=== PATIENT | female | born 1990 | race African-American/Black ===

== ENCOUNTER 2016-08-23 02:14 | Emergency (ER) | payer SELFPAY ==
[2016-08-23 02:24] VITALS: BP 113/84; BMI 23.3
--- NOTE | 2016-08-23 03:25 | DR.GENAD ---
HPI - PCP Primary Care Physician: NFD - Complaint/Symptoms Chief Complaint Doctors Comments: Patient had anxiety due to loss of first born. Baby was premature due to complication of spina bifida. Patient states that she has frequent thoughts about the lost of her first baby and gets anxiety at thime. She also viced concerns of the present relationship she is in. The father of her second child; who does not contributes to the support nor does he helps around the house. She does not have a relationship with her biological mother and has not had contact with her since leaving home at an early age. Chief Complaint:: CHEST PAIN, HEADACHE Self Treatment fo Chief Complaint: PT TOOK XANAX AT AROUND 2000 - Source History Provided: Patient - Mode of Arrival Mode of Arrival: Ambulatory - Timing Onset of Chief Complaint: 08/23/16 PMH - PMH Past Medical History: Yes Past Medical History: Anxiety Past Medical History Comment: PT TAKES XANAX FOT ANXIETY Past Surgical History: No Surgical History: - Family History History of Family Medical Conditions: No - Social History Does patient currently use any type of tobacco product: No Have you used tobacco products in the last 12 months: No Type of Tobacco Use: None Does any household member use tobacco: No Alcohol Use: None Do you use any recreational Drugs:: No Lives With: Alone Lives Where: Home - infectious screening In the last 2 months have you had wt loss of >10#?: NO Have you had fever, night sweats or hemotysis?: No Have you traveled outside the country in the last 6 months?: No Isolation: Standard ROS - Review of Systems Constitutional: No Symptoms Reported Eyes: No Symptoms Reported ENTM: No Symptoms Reported Respiratoy: No Symptoms Reported Cardiovascular: No Symptoms Reported Gastrointestinal/Abdominal: No Symptoms Reported Genitourinary: No Symptoms Reported Neurological: No Symptoms Reported Musculoskeletal: No Symptoms Reported Integumentary: No Symptoms Reported Hematologic/Lymphatic: No Symptoms Reported Endocrine: No Symptoms Reported Psychiatric: Anxiety. negative: Hallucinations, Suicidal All Other Systems: Reviewed and Negative PE - Vital Signs Vitals: Temperature 98.4 F Pulse Rate 90 Respiratory Rate 20 Blood Pressure 113/84 O2 Sat by Pulse Oximetry 99 - General Limitations: No Limitations General Appearance: Alert, In No Apparent Distress - Head Head Exam: Normal Inspection, Atraumatic - Eyes Eye exam: Normal Appearance, PERRL, EOMI - ENT ENT Exam: Normal Exam External Ear Exam: Normal External Inspection TM/Canal Exam: Bilateral Normal Nose Exam: Normal Nose Exam Mouth Exam: Normal Inspection Throat Exam: Normal Inspection - Neck Neck Exam: Normal Inspection, Full ROM - Chest Chest Inspection: Normal Inspection, Symmetric Chest Wall Rise - Respiratory Respiratory Exam: Normal Lung Sounds Bilat Respiratory Exam: Bilateral Clear to Auscultation - Cardiovascular Cardiovascular Exam: Regular Rate - Abdominal Exam Abdominal Exam: Normal Inspection Abdominal Tenderness: negative: RUQ, RLQ, LUQ, LLQ, Epigastrium, Suprapubic, Diffuse, Mild, Moderate, Severe, Other - Extremities Extremities Exam: Normal Inspection, Full ROM - Back Back Exam: Normal Inspection - Neurologic Neurological Exam: Alert, Oriented X3, CN II-XII Intact - Psychiatric Psychiatric Exam: Normal Affect - Skin Skin Exam: Warm, Dry, Normal Color - Diagnosis Discharge Problem: Anxiety - Discharge Plan Condition: Stable - Follow ups/Referrals Follow ups/Referrals: NFD,None [Primary Care Provider] - 3 days - Instructions
== END 2016-08-23 03:33 | disposition home or self-care (01) ==
LOC: ER 02:14
DX: F41.8 Other specified anxiety disorders (principal)
CPT/HCPCS: 99281; 99282

== ENCOUNTER 2017-02-08 18:07 | Emergency (ER) | payer SELFPAY ==
[2017-02-08 18:12] VITALS: BMI 23.7
[2017-02-08 19:20] LABS: BILIRUBIN,URINE NEGATIVE (NEGATIVE); BLOOD/HEMOGLOBIN,URINE NEGATIVE (NEGATIVE); GLUCOSE, URINE NEGATIVE (NEGATIVE); KETONES,URINE NEGATIVE (NEGATIVE); LEUKOCYTE ESTERASE ,URINE NEGATIVE (NEGATIVE); NITRITES,URINE NEGATIVE (NEGATIVE); PROTEIN,URINE NEGATIVE (NEGATIVE); UROBILINOGEN,URINE NORMAL (NORMAL)
--- NOTE | 2017-02-08 19:22 | DR.GENAD ---
HPI - PCP Primary Care Physician: none - Complaint/Symptoms Chief Complaint Doctors Comments: Patient is complainig of lower abdominal and suprapubic pain with the pain being worst today with sharp pain episode diarrhea but denie nausea, vomiting. Patient states she has been taking Deprovera shots and is unsure if she took her last shot. States her last period was two months ago. and she denies vaginal spotting or discharge. She denies nausea or hematuria. states she has nasal congestion but she is not taking any medicines for her sinus. States she is having cramping all over her stomach. No problems with food. Chief Complaint:: "stomache hurting for two weeks now three months with a period ". \\ - Nurses notes reviewed Nurses Notes Review: Yes - Source History Provided: Patient - Mode of Arrival Mode of Arrival: Ambulatory - Timing Onset of Chief Complaint: 01/27/17 Came on: Suddenly - Duration Duration: Intermittent Duration: Minutes, Hours - Location Location: suprapubic and RUQ pain - Severity Severity: Moderate - Modifying Factors Worsens:: movement Improves:: nothing PMH - PMH Past Medical History: Yes Past Medical History: Anxiety Past Surgical History: Yes Surgical History: - Family History History of Family Medical Conditions: No - Social History Does patient currently use any type of tobacco product: No Have you used tobacco products in the last 12 months: No Type of Tobacco Use: None Does any household member use tobacco: No Alcohol Use: None Do you use any recreational Drugs:: No Lives With: Family Lives Where: Home - infectious screening In the last 2 months have you had wt loss of >10#?: NO Have you had fever, night sweats or hemotysis?: No Have you traveled outside the country in the last 6 months?: No Isolation: Standard ROS - Review of Systems Constitutional: No Symptoms Reported, Weakness, Loss of Appetite. negative: See HPI, Chills, Diaphoresis, Fever, Malaise, Irritable, Fatigue, Other Eyes: No Symptoms Reported ENTM: No Symptoms Reported, Nose Discharge, Nose Congestion Respiratoy: No Symptoms Reported Cardiovascular: No Symptoms Reported Gastrointestinal/Abdominal: No Symptoms Reported, Abdominal Pain, Nausea. negative: See HPI, Constipation, Diarrhea, Vomiting, Food Intolerance, Other Genitourinary: No Symptoms Reported. negative: See HPI, Discharge, Dysuria, Frequency, Hematuria, Pain, Bleeding, Other Neurological: No Symptoms Reported Musculoskeletal: No Symptoms Reported Integumentary: No Symptoms Reported. negative: See HPI, Change in Color, Change in Hair/Nails, Dryness, Lesions, Lumps, Rash, Itching, Wound, Bruises, Juandice, Other Hematologic/Lymphatic: No Symptoms Reported Endocrine: No Symptoms Reported Psychiatric: No Symptoms Reported. negative: See HPI, Anxiety, Depression, Hallucinations, Excessive crying, Suicidal, Other PE - Vital Signs Vitals: Temperature 98 F Pulse Rate 80 Respiratory Rate 18 Blood Pressure 127/69 O2 Sat by Pulse Oximetry 100 - General Limitations: No Limitations General Appearance: Alert, In No Apparent Distress - Head Head Exam: Normal Inspection, Atraumatic, Normocephalic - Eyes Eye exam: Normal Appearance, PERRL, EOMI. negative: Scleral Icterus, Conjunctival Injection, Nystagmus, Miosis, Mydrasis, Periorbital Swelling, Periorbital Tenderness, Other - ENT ENT Exam: Normal Exam, Normal Oropharynx, Normal External Ear Exam, Mucous Membranes Moist, TM's Normal Bilaterally External Ear Exam: Normal External Inspection TM/Canal Exam: Bilateral Normal Nose Exam: Normal Nose Exam Mouth Exam: Normal Inspection Throat Exam: Normal Inspection - Neck Neck Exam: Normal Inspection - Chest Chest Inspection: Normal Inspection - Respiratory Respiratory Exam: Normal Lung Sounds Bilat Respiratory Exam: Bilateral Clear to Auscultation - Cardiovascular Cardiovascular Exam: Regular Rate, Normal Rhythm, Normal Heart Sounds - Abdominal Exam Abdominal Exam: Normal Inspection, Normal Bowel Sounds, Soft, Guarding Abdominal Tenderness: LUQ, Epigastrium, Suprapubic - Extremities Extremities Exam: Normal Inspection, Full ROM, Normal Capillary Refill. negative: Tenderness, Edema, Joint Swelling, Calf Tenderness, Other - Back Back Exam: Normal Inspection, Full ROM, Tenderness. negative: (R) CVA Tenderness, (L) CVA Tenderness, Muscle Spasm, Paraspinal Tenderness, Vertebral Tenderness, Rashes, (R) Sciatic Notch Tenderness, (L) Sciatic Notch Tendern, (R ) Straight Leg Raise, (L) Straight Leg Raise, Other - Neurologic Neurological Exam: Alert, Oriented X3, CN II-XII Intact, Normal Gait, Reflexes Normal - Psychiatric Psychiatric Exam: Normal Affect, Normal Mood - Skin Skin Exam: Warm, Dry, Intact, Normal Color ROR - Labs Reviewed Laboratory Results Reviewed?: Yes (all labs and x-ray result reviewed and discussed with patient) Result Diagrams: 02/08/17 19:24 02/08/17 19:24 Laboratory: WBC 10.5 X10^3/uL (3.6-10.0) H 02/08/17 19:24 RBC 4.06 X10^6/uL (3.5-5.4) 02/08/17 19:24 Hgb 12.5 g/dL (12.0-16.0) 02/08/17 19:24 Hct 36.5 % (36.0-47.0) 02/08/17 19:24 MCV 90.1 fL (80.0-100.0) 02/08/17 19:24 MCH 30.9 pg (27.0-34.0) 02/08/17 19:24 MCHC 34.4 g/dL (33.0-35.0) 02/08/17 19:24 RDW 13.3 % (11.6-16.5) 02/08/17 19:24 Plt Count 304 X10^3/uL (150.0-450.0) 02/08/17 19:24 MPV 8.1 fL (7.4-11.0) 02/08/17 19:24 Neut % 59.0 % (42.0-75.0) 02/08/17 19:24 Lymph % 27.3 % (21.0-51.0) 02/08/17 19:24 Woods % 10.6 % (0.0-13.0) 02/08/17 19:24 Eos % 2.0 % (0.9-2.9) 02/08/17 19:24 Baso % 1.1 % (0.2-1.0) H 02/08/17 19:24 Neut # 6.2 x10^3/uL (2.2-4.8) H 02/08/17 19:24 Lymph # 2.9 X10^3/uL (1.3-2.9) 02/08/17 19:24 Woods # 1.1 x10^3/uL (0.3-0.8) H 02/08/17 19:24 Eos # 0.2 x10^3/uL (0.0-0.2) 02/08/17 19:24 Baso # 0.1 X10^3/uL (0.0-0.1) 02/08/17 19:24 Absolute Nucleated RBC 0.1 /100WBC 02/08/17 19:24 Sodium 139 mmol/L (136-145) 02/08/17 19:24 Corrected Sodium TNP 02/08/17 19:24 Potassium 3.9 mmol/L (3.5-5.1) 02/08/17 19:24 Chloride 105 mmol/L (98-107) 02/08/17 19:24 Carbon Dioxide 25.2 mmol/L (21-32) 02/08/17 19:24 BUN 17 mg/dL (7-18) 02/08/17 19:24 Creatinine 0.77 mg/dL (0.55-1.02) 02/08/17 19:24 Est GFR (MDRD) Af Amer > 60 (>60) 02/08/17 19:24 Est GFR (MDRD) Non-Af > 60 (>60) 02/08/17 19:24 Glucose 79 mg/dL (65-99) 02/08/17 19:24 Calcium 9.0 mg/dL (8.5-10.1) 02/08/17 19:24 Corrected Calcium TNP 02/08/17 19:24 Total Bilirubin 0.30 mg/dL (0.2-1.0) 02/08/17 19:24 AST 16 Units/L (15-37) 02/08/17 19:24 ALT 21 Units/L (12-78) 02/08/17 19:24 Alkaline Phosphatase 118 Units/L (46-116) H 02/08/17 19:24 Total Protein 7.9 g/dL (6.4-8.2) 02/08/17 19:24 Albumin 3.4 g/dL (3.4-5.0) 02/08/17 19:24 Globulin 4.5 g/dL (2.5-4.5) 02/08/17 19:24 Albumin/Globulin Ratio 0.8 Ratio (1.1-2.1) L 02/08/17 19:24 Amylase 115 Units/L (25-115) 02/08/17 19:24 Lipase 250 Units/L (73-393) 02/08/17 19:24 HCG, Qual Negative <10 mIU/mL 02/08/17 19:24 Specimen Type Clean catch urine 02/08/17 19:11 Urine Color Yellow (YELLOW) 02/08/17 19:11 Urine Appearance Slightly hazy (CLEAR) 02/08/17 19:11 Urine pH 7.0 (5.0 - 8.0) 02/08/17 19:11 Ur Specific [place] 1.015 (1.000-1.030) 02/08/17 19:11 Urine Protein Negative (NEGATIVE) 02/08/17 19:11 Urine Glucose (UA) Negative (NEGATIVE) 02/08/17 19:11 Urine Ketones Negative (NEGATIVE) 02/08/17 19:11 Urine Occult Blood Negative (NEGATIVE) 02/08/17 19:11 Urine Nitrite Negative (NEGATIVE) 02/08/17 19:11 Urine Bilirubin Negative (NEGATIVE) 02/08/17 19:11 Urine Urobilinogen Normal (NORMAL) 02/08/17 19:11 Ur Leukocyte Esterase Negative (NEGATIVE) 02/08/17 19:11 Urine RBC None seen /HPF (NEGATIVE) 02/08/17 19:11 Urine WBC 0-2 /HPF (NEGATIVE) 02/08/17 19:11 Ur Squamous Epith Cells Rare /HPF (NEGATIVE) 02/08/17 19:11 Amorphous Sediment 1+ /HPF (NEGATIVE) 02/08/17 19:11 Urine Bacteria 1+ /HPF (NEGATIVE) 02/08/17 19:11 Ur Culture Indicated? No/not indicated 02/08/17 19:11 - XRAY XRAY Interpreted by: Radiologist (Abdominal series: No acuate cardiopulmonary disease. No evidence for acute abdominal pathology identified.) - Diagnosis Discharge Problem: Sinusitis, acute frontal, Stomach spasm Abdominal pain Qualifiers: Abdominal location: generalized Qualified Code(s): R10.84 - Generalized abdominal pain - Discharge Plan Disposition: 01 HOME, SELF-CARE Condition: Stable Prescriptions: Amoxicillin 500 mg PO TID #30 cap Cetirizine HCl [Zyrtec Tab 10 mg] 10 mg PO DAILY #30 tab Dicyclomine HCl [Bentyl Cap 10 mg] 10 mg PO TID PRN #15 cap PRN Reason: - Follow ups/Referrals Follow ups/Referrals: NFD,None [Primary Care Provider] - 3 days Ian Maria [STAFF PHYSICIAN] - 3 days - Instructions Instructions: Abdominal Pain, Adult, [id number], Sinusitis, Adult, Easy-to- Read, Irritable Bowel Syndrome, Adult, Irritable Bowel Syndrome, Pediatric
[2017-02-08 19:28] LABS: AMORPHOUS SEDIMENT,UR 1+ /HPF (NEGATIVE); APPEARANCE,URINE SLIGHTLY HAZY (CLEAR); BACTERIA,URINE 1+ /HPF (NEGATIVE); COLOR,URINE YELLOW (YELLOW); RBC,URINE NONE SEEN /HPF (NEGATIVE); SQUAMOUS EPITHELIAL CELL,UR RARE /HPF (NEGATIVE)
[2017-02-08 19:40] LABS: BASOPHILS # (AUTO) 0.1 X10^3/uL (0.0-0.1); BASOPHILS % (AUTO) 1.1 % (0.2-1.0); EOSINOPHILS # (AUTO) 0.2 x10^3/uL (0.0-0.2); HEMATOCRIT 36.5 % (36.0-47.0); HEMOGLOBIN 12.5 g/dL (12.0-16.0); LYMPHOCYTES # (AUTO) 2.9 X10^3/uL (1.3-2.9); LYMPHOCYTES % (AUTO) 27.3 % (21.0-51.0); MEAN CORPUSCULAR HEMOGLOBIN 30.9 pg (27.0-34.0); MEAN CORPUSCULAR HGB CONC 34.4 g/dL (33.0-35.0); MEAN CORPUSCULAR VOLUME 90.1 fL (80.0-100.0); MEAN PLATELET VOLUME 8.1 fL (7.4-11.0); MONOCYTES # (AUTO) 1.1 x10^3/uL (0.3-0.8); MONOCYTES % (AUTO) 10.6 % (0.0-13.0); NEUTROPHILS # (AUTO) 6.2 x10^3/uL (2.2-4.8); PLATELET COUNT 304 X10^3/uL (150.0-450.0); RED BLOOD COUNT 4.06 X10^6/uL (3.5-5.4); RED CELL DISTRIBUTION WIDTH 13.3 % (11.6-16.5); WHITE BLOOD COUNT 10.5 X10^3/uL (3.6-10.0)
[2017-02-08 19:48] LABS: SERUM PREGNANCY TEST, QUAL NEGATIVE <10 mIU/mL
[2017-02-08 19:49] LABS: ALANINE AMINOTRANSFERASE 21 Units/L (12-78); ALBUMIN 3.4 g/dL (3.4-5.0); ALKALINE PHOSPHATASE 118 Units/L (46-116); AMYLASE 115 Units/L (25-115); ASPARTATE AMINO TRANSFERASE 16 Units/L (15-37); BLOOD UREA NITROGEN 17 mg/dL (7-18); CARBON DIOXIDE 25.2 mmol/L (21-32); CHLORIDE 105 mmol/L (98-107); CREATININE 0.77 mg/dL (0.55-1.02); LIPASE 250 Units/L (73-393); SODIUM 139 mmol/L (136-145); TOTAL PROTEIN 7.9 g/dL (6.4-8.2); eGFR BLACK RACES > 60 (>60); eGFR NON BLACK RACES > 60 (>60)
--- NOTE | 2017-02-08 20:26 | RAD ---
Acute abdominal series Indication: Stomach pain Comparison: None available Findings: The trachea is midline. The cardiac silhouette is unremarkable. The lungs are clear without focal i nfiltrate or effusion. The bony thorax is unremarkable. Flat and upright evaluation of the abdomen demonstrates a normal bowel gas pattern. No pathological soft tissue mass or calcification can be observed. The bony structures are grossly intact. IMPRESSION: 1. No acute cardiopulmonary disease. 2. No evidence for acute abdominal pathology identified. Reported By:
[2017-02-08] MEDS ORDERED: TORADOL 60 MG VIAL IM ONE (20:38)
[2017-02-08] MEDS ORDERED: TORADOL 60 MG VIAL ONE (20:42)
[2017-02-08 21:02] VITALS: BP 120/87
== END 2017-02-08 21:02 | disposition home or self-care (01) ==
LOC: ER 18:15
DX: R10.84 Generalized abdominal pain (principal); K31.89 Other diseases of stomach and duodenum; J01.80 Other acute sinusitis
CPT/HCPCS: 36415; 74022; 80053; 81001; 82150; 83690; 84703; 85025; 96372; 99283; J1885

== ENCOUNTER 2017-02-13 13:00 | Emergency (ER) | payer SELFPAY ==
[2017-02-13 13:35] VITALS: BP 128/70; BMI 23.7
== END 2017-02-13 15:33 | disposition left against medical advice (07) ==
LOC: ER 13:39
DX: R10.84 Generalized abdominal pain (principal)
CPT/HCPCS: 99281